=== PATIENT | female | born 1950 | race Caucasian/White ===

== ENCOUNTER → 2018-08-20 | Outpatient (CLI) | payer BC ==
[2016-10-22 07:59] VITALS: BP 123/63
[~2018-08-20] MED LIST: ASPIR LOW81 MG PO; BENICAR HCT 12.1 TAB; ED SEPTRA/2 TAB/BOTT PO; FLOMAX PO; GORDO-VITE E15 GM; MESTINON60 M1 PO; MULTIVITAMIN1 SGL PO; PERCOCET 325 MG1 TA2 PO; SIMVASTATIN20 M1 PO; [UNRECOGNIZED DRUG - OTHER] PO
== END ==
LOC: MAMMO 11:30
DX: Z12.31 Encounter for screening mammogram for malignant neoplasm of breast (principal)

== ENCOUNTER → 2019-11-21 | Outpatient (CLI) | payer MEDICARE, BC ==
[2016-10-22 07:59] VITALS: BP 123/63
== END ==
LOC: VAS 16:34 → RAD 17:00
DX: I08.3 Combined rheumatic disorders of mitral, aortic and tricuspid valves (principal)

== ENCOUNTER → 2020-01-15 | Outpatient (CLI) | payer MEDICARE, BC ==
[2016-10-22 07:59] VITALS: BP 123/63
== END ==
LOC: MAMMO 09:06
DX: Z12.31 Encounter for screening mammogram for malignant neoplasm of breast (principal)

== ENCOUNTER → 2021-05-18 | Day surgery (SDC) | payer MEDICARE, BC | END | disposition home or self-care (01) | LOC: MSO 08:53 | DX: H25.13 Age-related nuclear cataract, bilateral (principal); I10 Essential (primary) hypertension; G70.00 Myasthenia gravis without (acute) exacerbation; E78.00 Pure hypercholesterolemia, unspecified; Z79.899 Other long term (current) drug therapy; Z87.891 Personal history of nicotine dependence | CPT/HCPCS: 00142; J0171; J2250; V2632 ==

== ENCOUNTER → 2021-06-22 | Day surgery (SDC) | payer MEDICARE, BC | END | disposition home or self-care (01) | LOC: MSO 11:05 | DX: H25.11 Age-related nuclear cataract, right eye (principal); H26.9 Unspecified cataract; I10 Essential (primary) hypertension; E78.00 Pure hypercholesterolemia, unspecified; G70.00 Myasthenia gravis without (acute) exacerbation; Z79.899 Other long term (current) drug therapy; Z87.891 Personal history of nicotine dependence | CPT/HCPCS: 00142; J0171; J2250; V2632 ==

== ENCOUNTER → 2022-01-16 | Day surgery (SDC) | payer MEDICARE, BC | END | disposition home or self-care (01) | LOC: MSO 07:21 | DX: R19.5 Other fecal abnormalities (principal); K57.30 Diverticulosis of large intestine without perforation or abscess without bleeding; E66.9 Obesity, unspecified | CPT/HCPCS: 00812; J2704; J3010; J7120 ==

== ENCOUNTER → 2022-01-25 | Outpatient (CLI) | payer MEDICARE, BC | LOC: MAMMO 13:40 | DX: Z13.820 Encounter for screening for osteoporosis (principal); Z78.0 Asymptomatic menopausal state ==

== ENCOUNTER → 2022-01-25 | Outpatient (CLI) | payer MEDICARE, BC | LOC: MAMMO 13:41 | DX: Z12.31 Encounter for screening mammogram for malignant neoplasm of breast (principal) ==

== ENCOUNTER 2023-09-26 10:45 | Outpatient (RCR) | payer MEDICARE, BC | END 2023-10-25 | disposition home or self-care (01) | LOC: PT | DX: M77.31 Calcaneal spur, right foot (principal); M89.8X7 Other specified disorders of bone, ankle and foot; M62.461 Contracture of muscle, right lower leg; G70.00 Myasthenia gravis without (acute) exacerbation ==